=== PATIENT | male | born 1995 | race Caucasian/White ===

== ENCOUNTER 2016-12-20 14:41 | Emergency (ER) | payer OTHER ==
[~2016-12-20] VITALS: Ht 172.7 cm; Wt 77.1 kg
[2016-12-20 16:30] VITALS: BP 129/81
== END 2016-12-20 16:32 | disposition home or self-care (01) ==
LOC: ER 14:41
DX: S01.111A Laceration without foreign body of right eyelid and periocular area, initial encounter (principal); W21.09XA Struck by other hit or thrown ball, initial encounter; Y93.69 Activity, other involving other sports and athletics played as a team or group; Y92.328 Other athletic field as the place of occurrence of the external cause; Y99.8 Other external cause status